=== PATIENT | male | born 2000 | race Caucasian/White ===

== ENCOUNTER 2019-06-06 03:02 | Emergency (ER) | payer SELFPAY ==
[~2019-06-06] VITALS: Ht 180.3 cm; Wt 87.7 kg
[2019-06-06 03:05] VITALS: BP 122/55
--- NOTE | 2019-06-06 03:15 | NUR ---
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
--- NOTE | 2019-06-06 04:04 | NUR ---
PT AMBULATES TO ROOM WITH STEADY GAIT.
--- NOTE | 2019-06-06 04:58 | NUR ---
PT D/C WITH D/C SUMMARY AND WORK NOTE. ALL QUESTIONS ANSWERED. PT DENIES ANY OTHER NEEDS PERTAINING TO THIS VISIT AND AMBULATES TO REGISTRATION DESK WITH STEADY GAIT FOR D/C HOME.
== END 2019-06-06 05:00 | disposition home or self-care (01) ==
LOC: ED 04:27
DX: R55 Syncope and collapse (principal)
CPT/HCPCS: 71046; 82962; 93005; 99284